=== PATIENT | female | born 1955 | race Asian ===

== ENCOUNTER 2022-06-20 20:57 | Emergency (ER) | payer MEDICARE, OTHER ==
[~2022-06-20] VITALS: Ht 165.1 cm; Wt 63.6 kg
[2022-06-20] MEDS ORDERED: ASPI81TA39 PO (21:38)
[2022-06-20] MEDS ORDERED: SEMA7TAB2 PO (21:38)
[2022-06-20] MEDS ORDERED: GLIP5TAB12 PO (21:38)
[2022-06-20] MEDS ORDERED: FENO54TA7 PO (21:38)
[2022-06-20] MEDS ORDERED: METF-1211 PO (21:38)
[2022-06-20] MEDS ORDERED: ATOR40TA28 PO (21:38)
[2022-06-20] MEDS ORDERED: LOSA-381 PO (21:38)
[2022-06-20] MEDS ORDERED: LEVO137T24 PO (21:38)
[2022-06-20] MEDS ORDERED: GABA-1181 PO (21:38)
[2022-06-20 22:12] LABS: GLUCOSE,POINT OF CARE 194 MG/DL (70-110)
[2022-06-20] MEDS ORDERED: ACYCLOVIR 200 MG CAPSULE PO ONE (22:45)
[2022-06-20] MEDS ORDERED: ACETAMINOPHEN/CODEINE 300-30 MG TABLET PO ONE (22:45)
[2022-06-20] MEDS ORDERED: ACYCLOVIR 800 MG TABLET PO ONE (22:45)
[2022-06-21 00:27] VITALS: BP 154/85
== END 2022-06-21 00:51 | disposition home or self-care (01) ==
LOC: EMS 21:04
DX: R21 Rash and other nonspecific skin eruption (principal); B02.9 Zoster without complications; E11.9 Type 2 diabetes mellitus without complications; E78.00 Pure hypercholesterolemia, unspecified; I10 Essential (primary) hypertension; E03.9 Hypothyroidism, unspecified; Z98.51 Tubal ligation status
CPT/HCPCS: 82962; 99283